=== PATIENT | female | born 1950 | race Caucasian/White ===

== ENCOUNTER 2018-01-05 14:58 | Emergency (ER) | payer MEDICARE ==
[2018-01-05] MEDS ORDERED: 0.9 % SODIUM CHLORIDE 1,000 ML BAG IV ONE (15:24)
[2018-01-05 16:00] LABS: BASO % 0.5 % (0-6); EOS % 1.3 % (0-6); GRAN % 61.3 % (47-80); HEMATOCRIT 32.8 % (35.0-47.0); LYMPH % 28.5 % (16-45); MEAN CORPUSCULAR HGB CONC 30.5 g/dl (32-36); MEAN PLATELET VOLUME 10.4 fl (7.4-10.4); MONO % 8.4 % (0-9); PLATELET COUNT 283 K/uL (130-400); RED BLOOD COUNT 3.49 M/uL (3.80-5.40); RED CELL DISTRIBUTION WIDTH 14.4 % (11.5-14.5); WHITE BLOOD COUNT W/O DIFF 9.4 K/uL (4.2-12.2)
[2018-01-05 16:01] LABS: MEAN CORPUSCULAR HEMOGLOBIN 28.6 pg (27-33)
[2018-01-05 16:15] LABS: BLOOD UREA NITROGEN 22 mg/dL (8-23); CREATININE 0.9 mg/dL (0.5-0.9); EST GLOMERULAR FILTRATION RATE > 60 mL/min
[2018-01-05 16:18] LABS: GLUCOSE,RANDOM 97 mg/dL (74-109)
--- NOTE | 2018-01-05 16:52 | Emergency Department Record ---
History of Present Illness - General Chief Complaint: Hypotension Stated Complaint: LOW BP Time Seen by Provider: 01/05/18 15:16 Source: Patient Mode of Arrival: Wheelchair - History of Present Illness Initial Comments: patient had the visiting nurse come to the house and her BP was low 80/60 and she was slightly dizzy getting up and the visiting nurse sent her to the hospital by family driving her here. Patient is not dizzy here and her BP is improved. Her lasix was increased to 40 mg on the day of discharge and the reason for her dehydration. -: Minutes(s) Timing: Unsure Description: Difficulty walking History of Same: Yes History of Trauma: Yes Severity: Mild - [place] Coma Scale Eye Response: (4) Open spontaneously Motor Response: (6) Obeys commands Verbal Response: (5) Oriented [place] Total: 15 - Related Data Previous Rx's Medication Instructions Recorded Acetaminophen [Tylenol 500Mg Tab] 1,000 mg PO TID tablet 01/04/18 Apixaban [Eliquis] 5 mg PO BID #60 tablet 01/04/18 Ascorbic Acid [Vitamin C] 1,000 mg PO DAILY #100 tab 01/04/18 Aspirin Enteric-Coated [Ecotrin 81 mg PO DAILY tabec 01/04/18 (EC)] Ferrous Sulfate [Iron] 325 mg PO DAILY #100 tablet 01/04/18 Furosemide [Lasix] 40 mg PO DAILY #30 tablet 01/04/18 Metoprolol Succinate [Toprol Xl] 100 mg PO DAILY #30 tab.er.24h 01/04/18 Mirtazapine [Remeron] 7.5 mg PO QHS #30 tablet 01/04/18 Pantoprazole Sodium [Protonix] 40 mg PO DAILYAC #30 tablet.dr 01/04/18 Potassium Chloride [Klor-Con] 10 meq PO DAILY #30 tablet.sa 01/04/18 Allergies Allergy/AdvReac Type Severity Reaction Status Date / Time No Known Drug Allergies Allergy Verified 01/05/18 15:11 Travel Screening - Travel/Exposure Within Last 30 Days Have you traveled within the last 30 days?: No - Travel/Exposure Within Last Year Have you traveled outside the [place] in the last year?: No - Additonal Travel Details Have you been exposed to anyone with a communicable illness?: No - Travel Symptoms Symptom Screening: None Review of Systems Reviewed: No additional complaints except as noted below Constitutional: Reports: As per HPI. Denies: Chills, Fever, Malaise, Night sweats, Weakness, Weight change Eyes: Reports: As per HPI. Denies: Eye discharge, Eye pain, Photophobia, Vision change ENT: Reports: As per HPI. Denies: Congestion, Dental pain, Ear pain, Epistaxis , Hearing loss, Throat pain Respiratory: Reports: As per HPI. Denies: Cough, Dyspnea, Hemoptysis, Stridor, Wheezes Cardiovascular: Reports: As per HPI. Denies: Arrhythmia, Chest pain, Dyspnea on exertion, Edema, Murmurs, Orthopnea, Palpitations, Paroxysmal nocturnal dyspnea, Rheumatic Fever, Syncope Endocrine: Reports: As per HPI. Denies: Fatigue, Heat or cold intolerance, Polydipsia, Polyuria Gastrointestinal: Reports: As per HPI. Denies: Abdominal pain, Constipation, Diarrhea, Hematemesis, Hematochezia, Melena, Nausea, Vomiting Genitourinary: Reports: As per HPI. Denies: Abnormal menses, Discharge, Dyspareunia, Dysuria, Frequency, Hematuria, Incontinence, Retention, Urgency Musculoskeletal: Reports: As per HPI. Denies: Arthralgia, Back pain, Gout, Joint swelling, Myalgia, Neck pain Skin: Reports: As per HPI. Denies: Bruising, Change in color, Change in hair/ nails, Lesions, Pruritus, Rash Neurological: Reports: As per HPI. Denies: Abnormal gait, Confusion, Headache, Numbness, Paresthesias, Seizure, Tingling, Tremors, Vertigo, Weakness Psychiatric: Reports: As per HPI. Denies: Anxiety, Auditory hallucinations, Depression, Homicidal thoughts, Suicidal thoughts, Visual hallucinations Hematological/Lymphatic: Reports: As per HPI. Denies: Anemia, Blood Clots, Easy bleeding, Easy bruising, Swollen glands Past Medical History - SOCIAL HISTORY Smoking Status: Former smoker - RESPIRATORY Hx Respiratory Disorders: Yes Hx Asthma: Yes Hx Bronchitis: Yes Hx COPD: No Hx Dyspnea: No Hx Pneumonia: No Hx Pulmonary Embolism: No Hx Sleep Apnea: No Hx Tuberculosis: No Hx of CPAP: No - CARDIOVASCULAR Hx Cardio Disorders: Yes Hx Abnormal EKG: Yes Hx Cardiac Cath: Yes (11/24/17) Hx Chest Pain: Yes Hx CHF: No Hx Deep Vein Thrombosis: No Hx Edema: Yes Hx Heart Attack: Yes (11/24/2017) Hx Hypertension: Yes Hx Hypotension: No Hx Irregular Heartbeat: Yes Hx Palpitations: No Hx Pacemaker/Defib: Yes Hx Vascular Disease: No - NEURO Hx Neuro Disorders: No Hx Seizures: No - GI Hx GI Disorders: No - Hx Genitourinary Disorders: No - ENDOCRINE Hx Endocrine Disorders: No - MUSCULOSKELETAL Hx Musculoskeletal Disorders: No - PSYCH Hx Psych Problems: No - HEMATOLOGY/ONCOLOGY Hx Hematology/Oncology Disorders: No Family Medical History Any Significant Family History?: Yes Hx Heart Disease: Children *Heart Comment: daughter from prolonged QT Hx HTN: Children Physical Exam - General General Appearance: Alert, Oriented x3, Cooperative, No acute distress - Head Head exam: Normal inspection - Eye Eye exam: Normal appearance, PERRL Pupils: Normal accommodation - ENT ENT exam: Normal exam, Mucous membranes moist, Normal external ear exam, Normal orophraynx, TM's normal bilaterally Ear exam: Normal external inspection. negative: External canal tenderness Nasal Exam: Normal inspection. negative: Discharge, Sinus tenderness Mouth exam: Normal external inspection, Tongue normal Teeth exam: Normal inspection. negative: Dental caries Throat exam: Normal inspection. negative: Tonsillar erythema, Tonsillar exudate - Neck Neck exam: Normal inspection, Full ROM. negative: Tenderness - Respiratory Respiratory exam: Normal lung sounds bilaterally. negative: Respiratory distress - Cardiovascular Cardiovascular Exam: Regular rate, Normal rhythm, Normal heart sounds - GI/Abdominal GI/Abdominal exam: Soft, Normal bowel sounds. negative: Tenderness - Rectal Rectal exam: Deferred - exam: Deferred - Extremities Extremities exam: Normal inspection, Full ROM, Normal capillary refill. negative: Tenderness - Back Back exam: Reports: Normal inspection, Full ROM. Denies: Muscle spasm, Rash noted, Tenderness - Neurological Neurological exam: Alert, Normal gait, Oriented X3, Reflexes normal - Psychiatric Psychiatric exam: Normal affect, Normal mood - Skin Skin exam: Dry, Intact, Normal color, Warm Course Vital Signs 01/05/18 01/05/18 15:04 16:26 Temperature 98.6 F Pulse Rate 72 Pulse Rate [ 65 Pulse Ox Probe] Respiratory 16 15 Rate Blood Pressure 109/77 Blood Pressure 100/59 [Left Arm] Pulse Ox 94 L 98 Medical Decision Making - Data Complexity MDM Data: Labs Ordered and/or Reviewed, EKG Ordered and/or Reviewed (NSR, no acute changes) - Lab Data Result diagrams: 01/05/18 15:53 01/05/18 15:53 Lab Results 01/05/18 01/05/18 Range/Units 15:53 15:53 WBC 9.4 (4.2-12.2) K/uL RBC 3.49 L (3.80-5.40) M/uL Hgb 10.0 L (11.6-16.0) gm/dl Hct 32.8 L (35.0-47.0) % MCV 94.0 (81-97) fl MCH 28.6 (27-33) pg MCHC 30.5 L (32-36) g/dl RDW 14.4 (11.5-14.5) % Plt Count 283 (130-400) K/uL MPV 10.4 (7.4-10.4) fl Gran % 61.3 (47-80) % Lymphocytes % 28.5 (16-45) % Monocytes % 8.4 (0-9) % Eosinophils % 1.3 (0-6) % Basophils % 0.5 (0-6) % Sodium 140 (136-145) mmol/L Potassium 3.9 (3.4-4.5) mmol/L Chloride 101 (98-107) mmol/L Carbon Dioxide 28.0 (22-29) mmol/L Anion Gap 11.0 (7-16) BUN 22 (8-23) mg/dL Creatinine 0.9 (0.5-0.9) mg/dL Estimated GFR > 60 mL/min Random Glucose 97 (74-109) mg/dL Calcium 9.0 (8.8-10.2) mg/dL Disposition Clinical Impression: Dehydration Disposition: Home, Self-Care Condition: (1) Good Instructions: Dehydration (ED) Additional Instructions: follow up with Primary as scheduled , No lasix tomorrow and than back to 20 mg a day on Monday. Primary is Dr. Rodas Time of Disposition: 17:01 Quality - Quality Measures Quality Measures: N/A - Blood Pressure Screening Does Patient Have Any of the Following: No Blood Pressure Classification: Normal BP Reading Systolic Measurement: 109 Diastolic Measurement: 77 Screening for High Blood Pressure: < Normal BP, F/U Not Required > [G8783]
== END 2018-01-05 17:19 | disposition home or self-care (01) ==
LOC: ER 14:58
DX: E86.0 Dehydration (principal); I95.9 Hypotension, unspecified; R42 Dizziness and giddiness; R26.2 Difficulty in walking, not elsewhere classified; I10 Essential (primary) hypertension; I25.2 Old myocardial infarction; Z87.891 Personal history of nicotine dependence
CPT/HCPCS: 80048; 85025; 93005; 93010; 96360; 99284; J7030